=== PATIENT | female | born 1940 ===

== ENCOUNTER 2017-08-14 09:51 | Inpatient (IN) | payer MEDICARE, OTHER ==
[2017-08-14 09:51] VITALS: BMI 35.6
--- NOTE | 2017-08-14 10:25 | ED PDOC ---
Arrival/HPI - History of Present Illness Context: Home <Steve Segura - Last Filed: 08/14/17 15:15> - General Historian: Patient - History of Present Illness Time/Duration: < week Symptom Onset: Gradual Symptom Course: Improving Severity Level: Moderate Activities at Onset: Rest Context: Home <Jason Tan - Last Filed: 08/14/17 17:53> - General Chief Complaint: Dizziness/Lightheaded Time Seen by Provider: 08/14/17 09:58 - History of Present Illness Narrative History of Present Illness (Text): 08/14/17 10:21 This is a 77 yo female, originally from [place], with past medical hx of arthritis, DM, HLD, HTN, presenting with chief complaint of dizziness. Pt reports dizziness lasting x 2 days. Says it feels like room is spinning. It comes and goes. She says it has happened before, but it usually goes away. It has been constant since last night. It gets worse when she is sitting up, getting out of bed. Denies recent cold or URI. Denies fevers, chills, vomiting , diarrhea, chest pain, sob, palpitations. Denies LOC. Denies fall. PMH: Arthritis, DM, HLD, HTN PSH: breast biopsy, hysterectomy Allergies: PCN FH: Non contributory Home meds: tramadol, lisinopril, simvastatin, metformin Social hx: denies smoking, drinking, drug use. (Jason Tan) Past Medical History - Provider Review Nursing Documentation Reviewed: Yes - Infectious Disease Hx of Infectious Diseases: None - Tetanus Immunization Tetanus Immunization: Unknown - Reproductive Menopause: Yes - Cardiac Hx Cardiac Disorders: Yes Hx Hypertension: Yes Hx Pacemaker: No - Pulmonary Hx Respiratory Disorders: No - Neurological Hx Neurological Disorder: No Hx Paralysis: No - HEENT Hx HEENT Disorder: No - Renal Hx Renal Disorder: No - Endocrine/Metabolic Hx Diabetes Mellitus Type 2: Yes - Hematological/Oncological Hx Blood Disorders: No Hx Blood Transfusions: No - Integumentary Hx Dermatological Disorder: No - Musculoskeletal/Rheumatological Hx Musculoskeletal Disorders: Yes Hx Arthritis: Yes Hx Falls: No - Gastrointestinal Hx Gastroesophageal Reflux: Yes HX Swallowing Problems: Yes - Genitourinary/Gynecological Hx Genitourinary Disorders: Yes - Psychiatric Hx Psychophysiologic Disorder: No Hx Anxiety: No Hx Bipolar Disorder: No Hx Depression: No Hx Emotional Abuse: No Hx Hallucinations: No Hx Panic Disorder: No Hx Post Traumatic Stress Disorder: No Hx Psychosis: No Hx Physical Abuse: No Hx Schizophrenia: No Hx Sexual Abuse: No Hx Substance Use: No - Surgical History Other/Comment: R breast sx - Anesthesia Hx Anesthesia: Yes Hx Anesthesia Reactions: No Hx Malignant Hyperthermia: No - Suicidal Assessment Feels Threatened In Home Enviroment: No <Jason Tan - Last Filed: 08/14/17 17:53> Family/Social History - Physician Review Nursing Documentation Reviewed: Yes Family/Social History: Unknown Family HX Smoking Status: Former Smoker Hx Alcohol Use: No Hx Substance Use: No Hx Substance Use Treatment: No <Jason Tan - Last Filed: 08/14/17 17:53> Allergies/Home Meds <Steve Segura - Last Filed: 08/14/17 15:15> <Jason Tan - Last Filed: 08/14/17 17:53> Allergies/Adverse Reactions: Allergies Penicillins Adverse Reaction (Verified 03/26/17 09:20) SHORTNESS OF BREATH Home Medications: Home Meds Medication Instructions Recorded Confirmed Dexlansoprazole [Dexilant] 60 mg PO DAILY 01/28/14 08/14/17 Lisinopril/Hydrochlorothiazide 1 tab PO DAILY 01/28/14 08/14/17 [Lisinopril-Hctz 20-25 mg Tab] Tramadol HCl [Ultram] 50 mg PO Q8 PRN 06/29/15 08/14/17 Cholecalciferol [Vitamin D 1000 IU] 1 tab PO DAILY 03/26/17 08/14/17 Multivit-Minerals/Folic/Ginkgo 1 each PO QAM 03/26/17 08/14/17 [Cvs Daily Multiple Tablet] Simethicone [Mylicon Chew Tab] 80 mg PO ONCE PRN 03/26/17 08/14/17 Simvastatin 20 mg PO QAM 03/26/17 08/14/17 metFORMIN [glucOPHAGE] 500 mg PO QAM 03/26/17 08/14/17 Review of Systems - Review of Systems Constitutional: absent: Fatigue, Weight Change, Fevers Eyes: absent: Vision Changes, Photophobia ENT: absent: Hearing Changes, Tinnitus Respiratory: absent: SOB, Cough Cardiovascular: absent: Chest Pain, Palpitations Gastrointestinal: absent: Abdominal Pain, Stool Changes Genitourinary Female: absent: Dysuria, Frequency Musculoskeletal: absent: Arthralgias, Back Pain Skin: absent: Rash, Pruritis Neurological: Dizziness, Disequilibrium. absent: Speech Changes Endocrine: absent: Diaphoresis, Polyuria Hemo/Lymphatic: absent: Adenopathy, Easy Bleeding Psychiatric: absent: Anxiety, Depression <Jason Tan - Last Filed: 08/14/17 17:53> Physical Exam Temperature: Afebrile Blood Pressure: Normal Pulse: Tachycardic Respiratory Rate: Normal <Steve Segura - Last Filed: 08/14/17 15:15> Vital Signs Reviewed: Yes Finger Stick Blood Glucose: 106 - Systems Exam Head: Present: Atraumatic, Normocephalic Pupils: Present: PERRL Extroacular Muscles: Present: EOMI Conjunctiva: Present: Normal Mouth: Present: Moist Mucous Membranes Neck: Present: Normal Range of Motion. No: Meningeal Signs Respiratory/Chest: Present: Clear to Auscultation. No: Respiratory Distress Cardiovascular: Present: Regular Rate and Rhythm, Normal S1, S2 Abdomen: No: Tenderness, Distention, Peritoneal Signs Upper Extremity: Present: Normal Inspection. No: Cyanosis, Edema Lower Extremity: Present: Normal Inspection. No: Edema Neurological: Present: CN II-XII Intact, Speech Normal, Motor Func Grossly Intact Skin: Present: Warm, Dry Psychiatric: Present: Alert, Oriented x 3, Normal Insight, Normal Concentration <Jason Tan - Last Filed: 08/14/17 17:53> Vital Signs Temp Pulse Resp BP Pulse Ox 08/14/17 15:19 89 18 137/71 100 08/14/17 14:16 91 H 119/78 97 08/14/17 12:04 95 H 18 120/75 99 08/14/17 10:18 98.0 F 98 H 17 116/73 99 Medical Decision Making <Steve Segura - Last Filed: 08/14/17 15:15> <Jason Tan - Last Filed: 08/14/17 17:53> ED Course and Treatment: A 77 year old female with dizziness. In agreement with resident note, which includes further HPI details. Patient was seen and evaluated with resident, came up with plan and treatment together. 08/14/17 10:52 Seen and examined with the resident. Our history and physical exam reveals an elderly woman with typical vertigo for the last several days. She has a normal neurological exam. No nausea or vomiting. No chest pain or palpitations. ( Colton,Steve) - Lab Interpretations Lab Results: 08/14/17 10:50 08/14/17 10:50 Lab Results 08/14/17 12:45: Urine Color Yellow, Urine Appearance Sl cloudy, Urine pH 6.5, Ur Specific [place] 1.020, Urine Protein Trace H, Urine Glucose (UA) Negative, Urine Ketones Negative, Urine Blood Trace-intact H, Urine Nitrate Negative, Urine Bilirubin Negative, Urine Urobilinogen 0.2, Ur Leukocyte Esterase Moderate H, Urine RBC Negative, Urine WBC 25 - 30, Ur Epithelial Cells 3 - 4 08/14/17 10:50: Sodium 140, Potassium 3.7, Chloride 104, Carbon Dioxide 27, Anion Gap 13, BUN 17, Creatinine 0.6 L, Est GFR ( Amer) > 60, Est GFR ( Non-Af Amer) > 60, Random Glucose 99, Calcium 10.4, Total Bilirubin 0.6, AST 25 , ALT 30, Alkaline Phosphatase 72, Troponin I < 0.01, Total Protein 8.1, Albumin 4.4, Globulin 3.7, Albumin/Globulin Ratio 1.2 08/14/17 10:50: WBC 9.8, RBC 5.17, Hgb 15.2, Hct 46.1, MCV 89.2, MCH 29.4, MCHC 33.0, RDW 14.3, Plt Count 270, MPV 10.7, Gran % 54.7, Lymph % (Auto) 32.7, [place] % (Auto) 11.8 H, Eos % (Auto) 0.4 L, Baso % (Auto) 0.4, Gran # 5.38, Lymph # 3.2 , [place] # 1.2 H, Eos # 0.0, Baso # 0.04 - RAD Interpretation Radiology Orders: 08/14/17 10:17 HEAD W/O CONTRAST [CT] Stat 08/14/17 11:58 BRAIN W & WO CONTRAST [MRI] Stat - Medication Orders Current Medication Orders: Atorvastatin Calcium (Lipitor) 10 mg PO DIN MARINA Cholecalciferol (Vitamin D) 1,000 iu PO DAILY MARINA Ciprofloxacin (Cipro) 500 mg PO DAILY MARINA PRN Reason: Protocol Stop: 08/15/17 17:19 Famotidine (Pepcid) 20 mg PO BID MARINA Heparin Sodium (Porcine) (Heparin) 5,000 units SC Q8 MARINA PRN Reason: Protocol Sodium Chloride (Sodium Chloride 0.9%) 1,000 mls @ 100 mls/hr IV .Q10H MARINA Last Admin: 08/14/17 11:07 Dose: 100 mls/hr eMAR Start Stop Document 08/14/17 11:07 SF (Rec: 08/14/17 11:07 SF [id number]) Intravenous Solution Start Date 08/14/17 Start Time 11:07 End Date 08/14/17 End time 23:07 Total Infusion Time 720 Lisinopril (Zestril) 40 mg PO DAILY MARINA Discontinued Medications Ciprofloxacin (Cipro) 500 mg PO ONCE STA PRN Reason: Protocol Stop: 08/14/17 13:53 Last Admin: 08/14/17 14:13 Dose: 500 mg Meclizine HCl (Antivert) 12.5 mg PO STAT STA Stop: 08/14/17 10:41 Last Admin: 08/14/17 11:07 Dose: 12.5 mg - PA / BARREL RIFLER HOOK / Resident Statement /DO has reviewed & agrees with the documentation as recorded. MD/ has examined the patient and agrees with the treatment plan. - Scribe Statement The provider has reviewed the documentation as recorded by the Scribe <Steve Segura - Last Filed: 08/14/17 15:15> <Jason Tan - Last Filed: 08/14/17 17:53> - Scribe Statement Paige Altamirano Provider Scribe Attestation: All medical record entries made by the Scribe were at my direction and personally dictated by me. I have reviewed the chart and agree that the record accurately reflects my personal performance of the history, physical exam, medical decision making, and the department course for this patient. I have also personally directed, reviewed, and agree with the discharge instructions and disposition. (Steve Segura) Disposition/Present on Arrival - Present on Arrival Any Indicators Present on Arrival: No History of DVT/PE: No History of Uncontrolled Diabetes: No Urinary Catheter: No History of Decub. Ulcer: No - Disposition Have Diagnosis and Disposition been Completed?: Yes Disposition Time: 14:06 Patient Plan: Admission <Steve Segura - Last Filed: 08/14/17 15:15> - Present on Arrival Any Indicators Present on Arrival: No History of DVT/PE: No History of Uncontrolled Diabetes: No Urinary Catheter: No History of Decub. Ulcer: No History Surgical Site Infection Following: None - Disposition Have Diagnosis and Disposition been Completed?: Yes Patient Plan: Admission <Jason Tan - Last Filed: 08/14/17 17:53> - Disposition Diagnosis: Meningioma, Dizziness, Urinary tract infection Disposition: HOSPITALIZED Patient Problems: Current Active Problems Problem Status Onset Dizziness Acute Meningioma Acute Urinary tract infection Acute Condition: STABLE
[2017-08-14] MEDS: Sodium Chloride 0.9% 1,000 ML IV SCH (11:07)
[2017-08-14 11:08] LABS: BASO # 0.04 K/mm3 (0.0-2.0); BASO % 0.4 % (0.0-3.0); EOS % 0.4 % (1.5-5.0); GRAN # 5.38 (1.4-6.5); GRAN % 54.7 % (50.0-68.0); HEMATOCRIT 46.1 % (36.0-48.0); LYMPH # 3.2 (1.2-3.4); LYMPH % 32.7 % (22.0-35.0); MEAN CELL VOLUME 89.2 fl (80.0-105.0); MEAN CORPUSCULAR HEMOGLOBIN 29.4 pg (25.0-35.0); MEAN PLATELET VOLUME 10.7 fl (7.0-11.0); MONO # 1.2 (0.1-0.6); MONO % 11.8 % (1.0-6.0); RED CELL DISTRIBUTION WIDTH 14.3 % (11.5-14.5); WHITE BLOOD COUNT 9.8 10^3/ul (4.5-11.0)
[2017-08-14 11:12] LABS: ALB/GLOB RATIO 1.2 (1.1-1.8); ALKALINE PHOSPHATASE 72 U/L (38-126); ALT/SGPT 30 U/L (7-56); AST/SGOT 25 U/L (14-36); BILIRUBIN,TOTAL 0.6 mg/dL (0.2-1.3); BLOOD UREA NITROGEN 17 mg/dL (7-21); CALCIUM 10.4 mg/dL (8.4-10.5); CARBON DIOXIDE 27 mmol/L (21-33); CHLORIDE 104 mmol/L (98-107); GFR AFRICAN-AMERICAN > 60; GLUCOSE,RANDOM 99 mg/dL (70-110); POTASSIUM 3.7 mmol/L (3.6-5.0); SODIUM 140 mmol/L (132-148); TOTAL PROTEIN 8.1 g/dL (5.8-8.3)
[2017-08-14 11:23] LABS: TROPONIN I < 0.01 ng/mL
--- NOTE | 2017-08-14 11:34 | CT ---
PROCEDURE: CT HEAD WITHOUT CONTRAST. HISTORY: dizziness/near syncope COMPARISON: None available. TECHNIQUE: Axial computed tomography images were obtained through the head/brain without intravenous contrast. Radiation dose: Total exam DLP = 726.57 mGy-cm. This CT exam was performed using one or more of the following dose reduction techniques: Automated exposure control, adjustment of the mA and/or kV according to patient size, and/or use of iterative reconstruction technique. FINDINGS: HEMORRHAGE: No intracranial hemorrhage. BRAIN: There is ill-defined masslike increased attenuation in the right frontal lobe, along the anterior border of the sphenoid wing. There is no surrounding vasogenic edema or mass effect. Further evaluation with pre and post gadolinium enhanced magnetic resonance imaging is advised. No other intracranial mass is identified. There is no evidence of acute infarct. There are scattered punctate cortical calcifications likely postinfectious/postinflammatory in origin. There is minimal diffuse age-appropriate cerebral atrophy. VENTRICLES: Unremarkable. No hydrocephalus. CALVARIUM: Unremarkable. PARANASAL SINUSES: Unremarkable as visualized. No significant inflammatory changes. MASTOID AIR CELLS: Unremarkable as visualized. No inflammatory changes. OTHER FINDINGS: None. IMPRESSION: Questionable right frontal lobe mass versus artifact. Recommend evaluation with pre and post gadolinium enhanced magnetic resonance imaging. No intracranial hemorrhage or evidence of acute infarct. Is for
[2017-08-14] MEDS ORDERED: Gadodiamide 287 MG/ML VIAL (20ML) IV ONE (13:05)
[2017-08-14 13:07] LABS: PH,URINE 6.5 (4.7-8.0); URINE BILIRUBIN NEGATIVE (NEGATIVE); URINE BLOOD TRACE-INTACT (NEGATIVE); URINE GLUCOSE (UA) NEGATIVE (NEGATIVE); URINE KETONE NEGATIVE (NEGATIVE); URINE LEUKOCYTE ESTERASE MODERATE Leu/uL (NEGATIVE); URINE PROTEIN TRACE mg/dL (<30 mg/dL); URINE UROBILINOGEN 0.2 E.U./dL (<1 E.U./dL)
[2017-08-14 13:12] LABS: URINE APPEARANCE SL CLOUDY (CLEAR); URINE COLOR YELLOW (YELLOW)
[2017-08-14 13:23] LABS: URINE RBC NEGATIVE /hpf (0-2); URINE WBC 25 - 30 /hpf (0-6)
--- NOTE | 2017-08-14 14:01 | MRI ---
PROCEDURE: MRI BRAIN WITH AND WITHOUT CONTRAST HISTORY: mass COMPARISON: CT of the head performed earlier today TECHNIQUE: Multiplanar, multisequence MR images of the brain were obtained with and without intravenous contrast enhancement. 20 cc of Omniscan FINDINGS: HEMORRHAGE: None DWI: No evidence of an acute or early subacute infarction. BRAIN PARENCHYMA: There is an enhancing mass in the right frontal region that most likely represents a meningioma. This measures 12 mm wide by 13 mm AP x 14 mm in height. This shows intense enhancement. There is no significant mass effect or edema in the adjacent brain. ENHANCEMENT: As above VENTRICLES: Unremarkable. No hydrocephalus. CRANIUM: Unremarkable. ORBITS: Grossly unremarkable. PARANASAL SINUSES/MASTOIDS: Clear VASCULAR SYSTEM: Skull base flow voids intact. OTHER FINDINGS: None . IMPRESSION: There is an enhancing mass in the right frontal region that most likely represents a meningioma. This measures 12 mm wide by 13 mm AP x 14 mm in height. This shows intense enhancement.
--- NOTE | 2017-08-14 17:01 | CP.PCM.HP ---
History of Present Illness - History of Present Illness History of Present Illness: CC: Dizziness HPI: Ms. Villanueva is a 77 year old female with a pmh of arthritis, DM, HLD, HTN, arthritis, presenting with 2 day complaint of feeling dizzy. She states that this came on all of a sudden and happens predominantly when she turns her head from side to side. She states that this happened one time previously one year ago however it went away on its own without any intervention. She states now this dizziness comes in 5-6 minute intervals on and off for the last 2 days. She states that she feels as if the room is spinning. Pt states that she is additionally having numbness and tingling in her bilateral 5th fingers. She denies any weakness or loss of mobility in bilateral hands. She denies any changes in vision, and problems with balance, tinnitus, and changes in hearing. She additionally denies; any fevers or chills, nausea or vomiting, chest pain, SOB, palpitations. Patient denies recent syncope, seizure activity or changes in vision or hearing. PMH: Arthritis, DM, HLD, HTN PSH: Right breast mastectomy for benign lesion, Hysterectomy, bilateral salpingectomy Fam Hx: Sister Breast Ca Soc: Smoker: socially, Denies alcohol or recreational drugs Meds: (Pharmacy [facility]) Simvastatin 20 mg 1x daily Prednisone 5mg 1x daily Lisinopril 40mg 1x daily Zantac 150mg 1x daily Present on Admission - Present on Admission Any Indicators Present on Admission: No Review of Systems - Constitutional Constitutional: absent: Chills, Fever - EENT Eyes: absent: Blind Spots, Blurred Vision, Diplopia, Tunnel Vision Ears: absent: Decreased Hearing, Abnormal Hearing Nose/Mouth/Throat: absent: Epistaxis, Nasal Congestion, Nasal Discharge - Breasts Breasts: Pain (right sided ) - Cardiovascular Cardiovascular: absent: Chest Pain, Chest Pain at Rest, Chest Pain with Activity , Dyspnea, Leg Edema - Respiratory Respiratory: absent: Cough, Dyspnea, Hemoptysis - Gastrointestinal Gastrointestinal: absent: Change in Bowel Habits, Constipation, Diarrhea - Genitourinary Genitourinary: absent: Change in Urinary Stream, Dysuria, Hematuria - Musculoskeletal Musculoskeletal: Arthralgias, Limited Range of Motion (neck ), Numbness (left fifth digit bilateral ). absent: Abnormal Gait - Integumentary Integumentary: absent: Acne, Rash - Neurological Neurological: Dizziness, Weakness. absent: Abnormal Gait, Confusion, Focal Weakness, Lack of Coordination, Tremor - Psychiatric Psychiatric: absent: Anxiety, Depression Past Patient History - Infectious Disease Hx of Infectious Diseases: None - Tetanus Immunizations Tetanus Immunization: Unknown - Past Medical History & Family History Past Medical History?: Yes - Past Social History Smoking Status: Former Smoker Alcohol: None Drugs: Denies - CARDIAC Hx Cardiac Disorders: Yes Hx Hypertension: Yes Hx Pacemaker: No - PULMONARY Hx Respiratory Disorders: No - NEUROLOGICAL Hx Neurological Disorder: No Hx Paralysis: No - HEENT Hx HEENT Problems: No - RENAL Hx Chronic Kidney Disease: No - ENDOCRINE/METABOLIC Hx Diabetes Mellitus Type 2: Yes - HEMATOLOGICAL/ONCOLOGICAL Hx Blood Disorders: No Hx Blood Transfusions: No - INTEGUMENTARY Hx Dermatological Problems: No - MUSCULOSKELETAL/RHEUMATOLOGICAL Hx Musculoskeletal Disorders: Yes Hx Arthritis: Yes Hx Falls: No - GASTROINTESTINAL Hx Gastroesophageal Reflux: Yes HX Swallowing Problems: Yes - GENITOURINARY/GYNECOLOGICAL Hx Genitourinary Disorders: Yes - PSYCHIATRIC Hx Psychophysiologic Disorder: No Hx Anxiety: No Hx Bipolar Disorder: No Hx Depression: No Hx Emotional Abuse: No Hx Hallucinations: No Hx Panic Symptoms: No Hx Post Traumatic Stress Disorder: No Hx Psychosis: No Hx Physical Abuse: No Hx Schizophrenia: No Hx Sexual Abuse: No Hx Substance Use: No - SURGICAL HISTORY Other/Comment: R breast sx - ANESTHESIA Hx Anesthesia: Yes Hx Anesthesia Reactions: No Hx Malignant Hyperthermia: No Meds Allergies/Adverse Reactions: Allergies Allergy/AdvReac Type Severity Reaction Status Date / Time Penicillins AdvReac SHORTNESS Verified 03/26/17 09:20 OF BREATH Physical Exam - Constitutional Appears: Non-toxic, No Acute Distress - Head Exam Head Exam: ATRAUMATIC, NORMAL INSPECTION, NORMOCEPHALIC - Eye Exam Eye Exam: EOMI, PERRL - ENT Exam ENT Exam: Mucous Membranes Moist, TM's Normal Bilaterally Additional comments: Internal Ear exam showing cerumen bilateral, no erythema, drainage or perforation noted Poor dentation noted - Neck Exam Neck exam: Negative for: Full Rom, Tenderness Additional comments: limited Fazal-Hallpike secondary to body bhabitus and symptomolgy, no nystagmus noted - Respiratory Exam Respiratory Exam: Clear to Auscultation Bilateral, NORMAL BREATHING PATTERN. absent: Rales, Rhonchi, Wheezes - Cardiovascular Exam Cardiovascular Exam: REGULAR RHYTHM, +S1, +S2 - GI/Abdominal Exam GI & Abdominal Exam: Hypoactive Bowel Sounds, Soft. absent: Firm, Guarding, Tenderness - Extremities Exam Extremities exam: Negative for: calf tenderness, pedal edema, tenderness - Neurological Exam Neurological exam: Alert, CN II-XII Intact, Normal Gait, Oriented x3 Additional comments: motor grossly intact Sensory of left and right lateral fifth digit with minimal sensation - Psychiatric Exam Psychiatric exam: Normal Affect, Normal Mood - Skin Skin Exam: Dry, Intact, Warm Results - Vital Signs Recent Vital Signs: Last Vital Signs Temp 98.0 F 08/14/17 10:18 Pulse 89 08/14/17 15:19 Resp 18 08/14/17 15:19 BP 137/71 08/14/17 15:19 Pulse Ox 100 08/14/17 15:19 - Labs Result Diagrams: 08/14/17 10:50 08/14/17 10:50 Assessment & Plan (1) Dizziness Status: Acute (2) Meningioma Status: Acute (3) Urinary tract infection Status: Acute - Assessment and Plan (Free Text) Assessment: Patient is a 77 yo female, originally from [place], with past medical hx of arthritis, DM, HLD, HTN who presents with few day history of dizziness and chronic left and right fifth digit numbness. During evaluation in ED patient found to have UTI and mengioma measuring [id number] enhancing mass in the Right Frontal Region suspicious for mengioma. Patient admitted for further work up and evaluation. Plan: 1. Meningioma - Brain MRI ordered in the ED Revealing [id number] enhancing mass in the Right Frontal Region - Neurology consulted, appreciate recs - Neurosurgery consulted, appreciate recs - Patient currently stable without focal deficits 2. UTI - Patient denies dysuria, hematuria, afebrile - UA reveals Leukocyte esterase - UA culture, f/u - Ciprofloxacin 500mg Daily x 3 days 3. Dizziness - Vitals Reviewed - orthostatics - CBC and CMP reviewed and within limits - Meclizine 12.5 mg given in the ED - Fazal-halpike negative in ED 4. Dyslipidemia - Lipitor 10mg Daily 5. HTN - lisinopril 40mg Daily - monitor 6. Hx of DM: - Patient no longer taking metformin - achs GI and DVT PPx: Famotidine 20mg BID Heparin SC - Date & Time Date: 08/14/17 Time: 17:07
[2017-08-14] MEDS ORDERED: Pneumococcal 23-Valent Vaccine IM ONE (19:49)
[2017-08-14] MEDS ORDERED: Influenza Vaccine 60 mcg/0.5 mL SYR (4YR UP) IM ONE (19:49)
--- NOTE | 2017-08-14 19:51 | CARD ---
APPROVED REPORT EKG Measurement Heart [id number] SD [id number] <Conclusion> Sinus rhythm with 1st degree AV block Left axis deviation Inferior infarct, age undetermined Abnormal ECG
--- NOTE | 2017-08-14 20:39 | CP.PCM.CON ---
<Azeb Winchester - Last Filed: 08/14/17 22:53> History of Present Illness - History of Present Illness History of Present Illness: PGY-2 neurology consult note for Dr. Diaz's service 77 year old female with a pmh of arthritis, Diabetes, hyperlipidemia, HTN, arthritis, presenting with 2 day complaint of feeling dizzy. She states that it is sudden and occurs when she turns her head from side to side. She reports 1 prior episode last year that resolved spontaneously. She describes it as the sensation of the room spinning. Dizziness has been on and off for the last 2 days. She denies any focal weakness, changes in vision, and problems with balance, tinnitus, and changes in hearing. During the work up for vertigo patient had head CT and brain MRI which showed meningioma in the right frontal region. Patient denies any headaches. PMH: Arthritis, DM, HLD, HTN PSH: Right breast mastectomy for benign lesion, Hysterectomy, bilateral salpingectomy Social history: Smokes socially, Denies alcohol or recreational drugs Meds: Simvastatin, Prednisone, Lisinopril, Zantac Review of Systems - Review of Systems All systems: reviewed and no additional remarkable complaints except (as stated in HPI) Past Patient History - Infectious Disease Hx of Infectious Diseases: None - Tetanus Immunizations Tetanus Immunization: Unknown - Past Medical History & Family History Past Medical History?: Yes - Past Social History Smoking Status: Former Smoker - CARDIAC Hx Cardiac Disorders: Yes Hx Hypercholesterolemia: Yes Hx Hypertension: Yes Hx Pacemaker: No - PULMONARY Hx Respiratory Disorders: No - NEUROLOGICAL Hx Neurological Disorder: No - HEENT Hx HEENT Problems: No - RENAL Hx Chronic Kidney Disease: No - ENDOCRINE/METABOLIC Hx Diabetes Mellitus Type 2: Yes - HEMATOLOGICAL/ONCOLOGICAL Hx Blood Disorders: No 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) Hx Chemotherapy: No - INTEGUMENTARY Hx Dermatological Problems: No - MUSCULOSKELETAL/RHEUMATOLOGICAL Hx Falls: No - GASTROINTESTINAL Hx Gastrointestinal Disorders: Yes (chronic constipation takes miralax daily) Hx Diverticulitis: Yes Hx Gastroesophageal Reflux: Yes HX Swallowing Problems: Yes Other/Comment: gastritis, pt uncertain about barretts esophagus, obese - GENITOURINARY/GYNECOLOGICAL Hx Genitourinary Disorders: Yes Other/Comment: multiple vaginal infections - PSYCHIATRIC Hx Substance Use: No - SURGICAL HISTORY Hx Hysterectomy: Yes (total due to uterine ca no chemo) Other/Comment: R breast sx benign - ANESTHESIA Hx Anesthesia: Yes Hx Anesthesia Reactions: No Hx Malignant Hyperthermia: No Meds Allergies/Adverse Reactions: Allergies Allergy/AdvReac Type Severity Reaction Status Date / Time Penicillins AdvReac SHORTNESS Verified 03/26/17 09:20 OF BREATH - Medications Medications: Current Medications Atorvastatin Calcium (Lipitor) 10 mg PO DIN [facility] Last Admin: 08/14/17 17:51 Dose: 10 mg Cholecalciferol (Vitamin D) 1,000 iu PO DAILY [facility] Ciprofloxacin (Cipro) 500 mg PO DAILY [facility] PRN Reason: Protocol Stop: 08/15/17 17:19 Famotidine (Pepcid) 20 mg PO BID [facility] Last Admin: 08/14/17 17:51 Dose: 20 mg Heparin Sodium (Porcine) (Heparin) 5,000 units SC Q8 [facility] PRN Reason: Protocol Sodium Chloride (Sodium Chloride 0.9%) 1,000 mls @ 100 mls/hr IV .Q10H [facility] Last Admin: 08/14/17 11:07 Dose: 100 mls/hr Lisinopril (Zestril) 40 mg PO DAILY [facility] Physical Exam - Constitutional Appears: Well, No Acute Distress - Head Exam Head Exam: ATRAUMATIC, NORMAL INSPECTION, NORMOCEPHALIC - Eye Exam Eye Exam: EOMI, Normal appearance - ENT Exam ENT Exam: Mucous Membranes Moist - Respiratory Exam Respiratory Exam: NORMAL BREATHING PATTERN. absent: Prolonged Expiratory Phase , Respiratory Distress - Cardiovascular Exam Cardiovascular Exam: REGULAR RHYTHM - Neurological Exam Neurological exam: Alert, CN II-XII Intact, Oriented x3, Reflexes Normal - Skin Skin Exam: Dry, Intact, Normal Color, Warm Results - Vital Signs Recent Vital Signs: Last Vital Signs Temp 98 F 08/14/17 19:40 Pulse 91 H 08/14/17 19:40 Resp 18 08/14/17 19:40 BP 119/78 08/14/17 19:40 Pulse Ox 96 08/14/17 16:00 - Labs Result Diagrams: 08/14/17 10:50 08/14/17 10:50 Assessment & Plan - Assessment and Plan (Free Text) Assessment: 77 year old female with a pmh of arthritis, DM, HLD, HTN, arthritis, presenting with dizziness secondary to positional vertigo intermittently worsening with incidental meningioma. 1. positional vertigo 2. incidental meningioma of right frontal lobe 3. diabetes 4. hyperlipidemia - CT head and MRI brain showed meningioma in the right frontal region. - orthostatic vitals - outpatient vestibular therapy - salt restriction and diet - meclize PRN at onset of acute dizziness - inceidental meningioma, patient currently asymtompatic consider moniotring - consider neurosurgery evaluation thank you for the consult, please reconsult if needed case reviewed and discussed with attending, Dr. Diaz <Mannie Diaz - Last Filed: 08/15/17 10:38> Meds - Medications Medications: Current Medications Atorvastatin Calcium (Lipitor) 10 mg PO DIN [facility] Last Admin: 08/14/17 17:51 Dose: 10 mg Cholecalciferol (Vitamin D) 1,000 iu PO DAILY [facility] Last Admin: 08/15/17 08:59 Dose: 1,000 iu Famotidine (Pepcid) 20 mg PO BID [facility] Last Admin: 08/15/17 08:59 Dose: 20 mg Heparin Sodium (Porcine) (Heparin) 5,000 units SC Q8 [facility] PRN Reason: Protocol Last Admin: 08/15/17 06:14 Dose: 5,000 units Sodium Chloride (Sodium Chloride 0.9%) 1,000 mls @ 100 mls/hr IV .Q10H [facility] Last Admin: 08/15/17 09:27 Dose: 100 mls/hr Aztreonam (Azactam 1 Gm) 100 mls @ 100 mls/hr IVPB Q8 [facility] PRN Reason: Protocol Stop: 08/21/17 23:16 Last Admin: 08/15/17 06:14 Dose: 100 mls/hr Lisinopril (Zestril) 40 mg PO DAILY [facility] Last Admin: 08/15/17 08:59 Dose: 40 mg Meclizine HCl (Antivert) 25 mg PO BID PRN PRN Reason: Dizziness Results - Vital Signs Recent Vital Signs: Last Vital Signs Temp 98 F 08/15/17 07:00 Pulse 77 08/15/17 07:00 Resp 20 08/15/17 07:00 BP 130/63 08/15/17 07:00 Pulse Ox 99 08/15/17 07:00 - Labs Result Diagrams: 08/15/17 06:30 08/15/17 06:50 Labs: Laboratory Results - last 24 hr 08/14/17 08/14/17 08/15/17 16:55 21:11 06:30 WBC 6.9 D RBC 5.01 Hgb 14.5 Hct 44.7 MCV 89.2 MCH 28.9 MCHC 32.4 RDW 14.7 H Plt Count 286 MPV 10.9 Gran % 45.7 L Lymph % (Auto) 42.4 H [place] % (Auto) 9.7 H Eos % (Auto) 1.6 Baso % (Auto) 0.6 Gran # 3.14 Lymph # 2.9 [place] # 0.7 H Eos # 0.1 Baso # 0.04 Sodium Potassium Carbon Dioxide BUN POC Glucose (mg/dL) 82 102 Random Glucose Total Bilirubin Total Protein Globulin Albumin/Globulin Ratio 08/15/17 08/15/17 06:50 07:24 WBC RBC Hgb Hct MCV MCH MCHC RDW Plt Count MPV Gran % Lymph % (Auto) [place] % (Auto) Eos % (Auto) Baso % (Auto) Gran # Lymph # [place] # Eos # Baso # Sodium 140 Potassium 4.5 Carbon Dioxide 21 BUN 13 POC Glucose (mg/dL) 111 H Random Glucose 105 Total Bilirubin 0.7 Total Protein 7.1 Globulin 2.9 Albumin/Globulin Ratio 1.4 Attending/Attestation - Attestation I have personally seen and examined this patient.: Yes I have fully participated in the care of the patient.: Yes I have reviewed all pertinent clinical information: Yes
[2017-08-14] MEDS: Aztreonam 1 Gm in NS 100mL 100 ML IVPB SCH (23:31)
[2017-08-15 03:58] VITALS: RESP 20
[2017-08-15] MEDS: Aztreonam 1 Gm in NS 100mL 100 ML IVPB SCH ×2 (06:14→14:18)
[2017-08-15 07:03] LABS: BASO # 0.04 K/mm3 (0.0-2.0); BASO % 0.6 % (0.0-3.0); EOS # 0.1 (0.0-0.7); EOS % 1.6 % (1.5-5.0); GRAN # 3.14 (1.4-6.5); GRAN % 45.7 % (50.0-68.0); HEMATOCRIT 44.7 % (36.0-48.0); LYMPH # 2.9 (1.2-3.4); LYMPH % 42.4 % (22.0-35.0); MEAN CELL VOLUME 89.2 fl (80.0-105.0); MEAN CORPUSCULAR HEMOGLOBIN 28.9 pg (25.0-35.0); MEAN CORPUSCULAR HGB CONC 32.4 g/dl (31.0-37.0); MEAN PLATELET VOLUME 10.9 fl (7.0-11.0); MONO # 0.7 (0.1-0.6); MONO % 9.7 % (1.0-6.0); RED CELL DISTRIBUTION WIDTH 14.7 % (11.5-14.5); WHITE BLOOD COUNT 6.9 10^3/ul (4.5-11.0)
[2017-08-15 08:51] LABS: ALB/GLOB RATIO 1.4 (1.1-1.8); BILIRUBIN,TOTAL 0.7 mg/dL (0.2-1.3); BLOOD UREA NITROGEN 13 mg/dL (7-21); CARBON DIOXIDE 21 mmol/L (21-33); GLUCOSE,RANDOM 105 mg/dL (70-110); POTASSIUM 4.5 mmol/L (3.6-5.0); SODIUM 140 mmol/L (132-148); TOTAL PROTEIN 7.1 g/dL (5.8-8.3)
[2017-08-15 09:03] VITALS: BP 130/63; PULSE 77; TEMP 98; O2SAT 99
[2017-08-15] MEDS: Sodium Chloride 0.9% 1,000 ML IV SCH (09:27)
[2017-08-15 11:56] LABS: GFR AFRICAN-AMERICAN > 60
[2017-08-15 11:57] LABS: ALKALINE PHOSPHATASE 69 U/L (38-126); ALT/SGPT 30 U/L (7-56); AST/SGOT 23 U/L (14-36); CHLORIDE 107 mmol/L (98-107)
--- NOTE | 2017-08-15 12:49 | CP.PCM.CON ---
History of Present Illness - History of Present Illness History of Present Illness: 77 year old female with PMH of coronary artery disease, hypertension, hyperlipidemia, arthritis, history of diverticulitis in the past, gastritis, history of right breast mastectomy, S/P hysterectomy and bilateral salpingectomy was brought in to [facility] because of dizziness for the past 2-3 days, which was intermittent and sudden in onset. She is also complaining of 2-3 days of burning sensation on urination and she states that she has had multiple episodes of UTI in the past and she was last treated with antibiotics in April 2017. Infectious diseases consult is requested to evaluate for UTI. Imaging of the head reveals meningioma. She denies headache, no blurring of vision, no nausea or vomiting, no chest pain, no SOB, no cough or colds, no abdominal pain, no dysphagia, no diarrhea. She has not traveled outside of [place] in the past 3 months. Review of Systems - Review of Systems All systems: reviewed and no additional remarkable complaints except (as per HPI ) Past Patient History - Infectious Disease Hx of Infectious Diseases: None - Tetanus Immunizations Tetanus Immunization: Unknown - Past Medical History & Family History Past Medical History?: Yes - Past Social History Smoking Status: Former Smoker - CARDIAC Hx Cardiac Disorders: Yes Hx Hypercholesterolemia: Yes Hx Hypertension: Yes Hx Pacemaker: No - PULMONARY Hx Respiratory Disorders: No - NEUROLOGICAL Hx Neurological Disorder: No - HEENT Hx HEENT Problems: No - RENAL Hx Chronic Kidney Disease: No - ENDOCRINE/METABOLIC Hx Diabetes Mellitus Type 2: Yes - HEMATOLOGICAL/ONCOLOGICAL Hx Blood Disorders: No 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) Hx Chemotherapy: No - INTEGUMENTARY Hx Dermatological Problems: No - MUSCULOSKELETAL/RHEUMATOLOGICAL Hx Falls: No - GASTROINTESTINAL Hx Gastrointestinal Disorders: Yes (chronic constipation takes miralax daily) Hx Diverticulitis: Yes Hx Gastroesophageal Reflux: Yes HX Swallowing Problems: Yes Other/Comment: gastritis, pt uncertain about barretts esophagus, obese - GENITOURINARY/GYNECOLOGICAL Hx Genitourinary Disorders: Yes Other/Comment: multiple vaginal infections - PSYCHIATRIC Hx Substance Use: No - SURGICAL HISTORY Hx Hysterectomy: Yes (total due to uterine ca no chemo) Other/Comment: R breast sx benign - ANESTHESIA Hx Anesthesia: Yes Hx Anesthesia Reactions: No Hx Malignant Hyperthermia: No Meds Allergies/Adverse Reactions: Allergies Allergy/AdvReac Type Severity Reaction Status Date / Time Penicillins AdvReac SHORTNESS Verified 03/26/17 09:20 OF BREATH - Medications Medications: Current Medications Atorvastatin Calcium (Lipitor) 10 mg PO DIN [facility] Last Admin: 08/14/17 17:51 Dose: 10 mg Cholecalciferol (Vitamin D) 1,000 iu PO DAILY [facility] Famotidine (Pepcid) 20 mg PO BID [facility] Last Admin: 08/14/17 17:51 Dose: 20 mg Heparin Sodium (Porcine) (Heparin) 5,000 units SC Q8 [facility] PRN Reason: Protocol Last Admin: 08/14/17 21:42 Dose: 5,000 units Sodium Chloride (Sodium Chloride 0.9%) 1,000 mls @ 100 mls/hr IV .Q10H [facility] Last Admin: 08/14/17 11:07 Dose: 100 mls/hr Aztreonam (Azactam 1 Gm) 100 mls @ 100 mls/hr IVPB Q8 [facility] PRN Reason: Protocol Stop: 08/21/17 23:16 Lisinopril (Zestril) 40 mg PO DAILY [facility] Meclizine HCl (Antivert) 25 mg PO BID PRN PRN Reason: Dizziness Physical Exam - Constitutional Appears: Non-toxic - Head Exam Head Exam: NORMAL INSPECTION - ENT Exam ENT Exam: Mucous Membranes Moist - Neck Exam Neck exam: Negative for: Lymphadenopathy, Meningismus - Respiratory Exam Respiratory Exam: Decreased Breath Sounds - Cardiovascular Exam Cardiovascular Exam: +S1, +S2 - GI/Abdominal Exam GI & Abdominal Exam: Soft. absent: Tenderness Results - Vital Signs Recent Vital Signs: Last Vital Signs Temp 98 F 08/14/17 19:40 Pulse 91 H 08/14/17 19:40 Resp 18 08/14/17 19:40 BP 119/78 08/14/17 19:40 Pulse Ox 96 08/14/17 16:00 - Labs Result Diagrams: 08/15/17 06:30 08/15/17 06:50 Assessment & Plan - Assessment and Plan (Free Text) Plan: Assessment R/O UTI in this patient with history of UTI's history of acute sigmoid diverticulitis with associated diverticular abscess growing ESBL producing E. coli coronary artery disease hypertension hyperlipidemia arthritis history of diverticulitis in the past gastritis history of right breast mastectomy S/P hysterectomy and bilateral salpingectomy Plan started patient on Azactam pending blood and urine cx follow up Neurology evaluation and recommendations will monitor clinically
--- NOTE | 2017-08-15 14:06 | CP.PCM.PN ---
Subjective - Date & Time of Evaluation Date of Evaluation: 08/15/17 Time of Evaluation: 14:04 - Subjective Subjective: MRI demonstrates 1.2 cm diameter mass lat sphenoid wing with no mass effect this is consistant with meningioma It is incidental finding, and not related to symptoms and complaints which caused admission Would not consider operating on this at this admission suggest she follows as outpatient for this problem It is not an acute issue Objective - Vital Signs/Intake and Output Vital Signs (last 24 hours): Temp Pulse Resp BP Pulse Ox 98 F 77 20 130/63 99 08/15/17 07:00 08/15/17 07:00 08/15/17 07:00 08/15/17 07:00 08/15/17 07:00 Intake and Output: 08/15/17 08/15/17 06:59 18:59 Intake Total 240 Balance 240 - Medications Medications: Current Medications Atorvastatin Calcium (Lipitor) 10 mg PO DIN [facility] Last Admin: 08/14/17 17:51 Dose: 10 mg Cholecalciferol (Vitamin D) 1,000 iu PO DAILY [facility] Last Admin: 08/15/17 08:59 Dose: 1,000 iu Famotidine (Pepcid) 20 mg PO BID [facility] Last Admin: 08/15/17 08:59 Dose: 20 mg Heparin Sodium (Porcine) (Heparin) 5,000 units SC Q8 [facility] PRN Reason: Protocol Last Admin: 08/15/17 13:21 Dose: Not Given Sodium Chloride (Sodium Chloride 0.9%) 1,000 mls @ 100 mls/hr IV .Q10H [facility] Last Admin: 08/15/17 09:27 Dose: 100 mls/hr Aztreonam (Azactam 1 Gm) 100 mls @ 100 mls/hr IVPB Q8 [facility] PRN Reason: Protocol Stop: 08/21/17 23:16 Last Admin: 08/15/17 06:14 Dose: 100 mls/hr Lisinopril (Zestril) 40 mg PO DAILY [facility] Last Admin: 08/15/17 08:59 Dose: 40 mg Meclizine HCl (Antivert) 25 mg PO BID PRN PRN Reason: Dizziness - Labs Labs: 08/15/17 06:30 08/15/17 06:50
--- NOTE | 2017-08-15 16:39 | CP.PCM.DIS ---
Provider - Provider Date of Admission: 08/14/17 14:08 Attending physician: Emanuel Gil MD Primary care physician: Keri Dawson MD Consults: Neurology: Dr. Mannie Diaz Neurosurgery: Dr. Driscoll Time Spent in preparation of Discharge (in minutes): 25 Diagnosis - Discharge Diagnosis (1) Dizziness Status: Acute (2) Meningioma Status: Acute (3) Urinary tract infection Status: Acute Hospital Course - Lab Results Lab Results: Most Recent Lab Values WBC 6.9 10^3/ul (4.5-11.0) D 08/15/17 06:30 RBC 5.01 10^6/uL (3.5-6.1) 08/15/17 06:30 Hgb 14.5 g/dL (12.0-16.0) 08/15/17 06:30 Hct 44.7 % (36.0-48.0) 08/15/17 06:30 MCV 89.2 fl (80.0-105.0) 08/15/17 06:30 MCH 28.9 pg (25.0-35.0) 08/15/17 06:30 MCHC 32.4 g/dl (31.0-37.0) 08/15/17 06:30 RDW 14.7 % (11.5-14.5) H 08/15/17 06:30 Plt Count 286 10^3/uL (120.0-450.0) 08/15/17 06:30 MPV 10.9 fl (7.0-11.0) 08/15/17 06:30 Gran % 45.7 % (50.0-68.0) L 08/15/17 06:30 Lymph % (Auto) 42.4 % (22.0-35.0) H 08/15/17 06:30 [place] % (Auto) 9.7 % (1.0-6.0) H 08/15/17 06:30 Eos % (Auto) 1.6 % (1.5-5.0) 08/15/17 06:30 Baso % (Auto) 0.6 % (0.0-3.0) 08/15/17 06:30 Gran # 3.14 (1.4-6.5) 08/15/17 06:30 Lymph # 2.9 (1.2-3.4) 08/15/17 06:30 [place] # 0.7 (0.1-0.6) H 08/15/17 06:30 Eos # 0.1 (0.0-0.7) 08/15/17 06:30 Baso # 0.04 K/mm3 (0.0-2.0) 08/15/17 06:30 Sodium 140 mmol/L (132-148) 08/15/17 06:50 Potassium 4.5 mmol/L (3.6-5.0) 08/15/17 06:50 Chloride 107 mmol/L (98-107) 08/15/17 06:50 Carbon Dioxide 21 mmol/L (21-33) 08/15/17 06:50 Anion Gap 17 (10-20) 08/15/17 06:50 BUN 13 mg/dL (7-21) 08/15/17 06:50 Creatinine 0.6 mg/dl (0.7-1.2) L 08/15/17 06:50 Est GFR ( Amer) > 60 08/15/17 06:50 Est GFR (Non-Af Amer) > 60 08/15/17 06:50 POC Glucose (mg/dL) 102 mg/dL (65-110) 08/15/17 11:15 Random Glucose 105 mg/dL (70-110) 08/15/17 06:50 Calcium 10.0 mg/dL (8.4-10.5) 08/15/17 06:50 Total Bilirubin 0.7 mg/dL (0.2-1.3) 08/15/17 06:50 AST 23 U/L (14-36) 08/15/17 06:50 ALT 30 U/L (7-56) 08/15/17 06:50 Alkaline Phosphatase 69 U/L (38-126) 08/15/17 06:50 Troponin I < 0.01 ng/mL 08/14/17 10:50 Total Protein 7.1 g/dL (5.8-8.3) 08/15/17 06:50 Albumin 4.1 g/dL (3.0-4.8) 08/15/17 06:50 Globulin 2.9 gm/dL 08/15/17 06:50 Albumin/Globulin Ratio 1.4 (1.1-1.8) 08/15/17 06:50 Urine Color Yellow (YELLOW) 08/14/17 12:45 Urine Appearance Sl cloudy (CLEAR) 08/14/17 12:45 Urine pH 6.5 (4.7-8.0) 08/14/17 12:45 Ur Specific [place] 1.020 (1.005-1.035) 08/14/17 12:45 Urine Protein Trace mg/dL (<30 mg/dL) H 08/14/17 12:45 Urine Glucose (UA) Negative mg/dL (NEGATIVE) 08/14/17 12:45 Urine Ketones Negative mg/dL (NEGATIVE) 08/14/17 12:45 Urine Blood Trace-intact (NEGATIVE) H 08/14/17 12:45 Urine Nitrate Negative (NEGATIVE) 08/14/17 12:45 Urine Bilirubin Negative (NEGATIVE) 08/14/17 12:45 Urine Urobilinogen 0.2 E.U./dL (<1 E.U./dL) 08/14/17 12:45 Ur Leukocyte Esterase Moderate Lg/uL (NEGATIVE) H 08/14/17 12:45 Urine RBC Negative /hpf (0-2) 08/14/17 12:45 Urine WBC 25 - 30 /hpf (0-6) 08/14/17 12:45 Ur Epithelial Cells 3 - 4 /hpf (0-5) 08/14/17 12:45 - Hospital Course Hospital Course: Patient is a 77 year old female with past medical history of DM2, arthritis, HLD , and HTN who presented to the hospital complaining of a 2 day history of dizziness. Patient reported one previous history of such episode one year ago. Patient was evaluated in the emergency department with Head CT and Head MRI showing menigioma in the right frontal region without mass effect. Patient also evaluated to have urinalysis showing positive leukocyte esterase and placed on antibiotics for UTI. ID was consulted for ciprofloxacin and switched patient to Aztreonam in patient while awaiting urine culture. Neurology was consulted for dizziness and evaluated the patient with recommendations of neurosurgery consult , meclizine PRN, salt restriction and diet, and outpatient vestibular therapy. Neurosurgery was consulted and recommended against surgical intervention during this admission with recommendations for outpatient follow up. When potential for surgical intervention was discussed patient voiced strong objection to surgical intervention. Patient was educated and informed regarding discharge instructions. Patient informed to follow up outpatient with PMD, neurology, and neurosurgery for continued observation and management of mengioma. Patient was in understanding with plan. Patient evaluated to be hemodynamically stable, normothermic, euvolemic and discharged with plans for outpatient follow up. - Date & Time of H&P Date of H&P: 08/14/17 Time of H&P: 16:57 Discharge Exam - Head Exam Head Exam: ATRAUMATIC, NORMAL INSPECTION, NORMOCEPHALIC - Eye Exam Eye Exam: EOMI, PERRL. absent: Nystagmus Pupil Exam: absent: Miosis, Mydriatic - ENT Exam ENT Exam: Mucous Membranes Moist - Neck Exam Neck exam: Full Rom - Respiratory Exam Respiratory Exam: Clear to PA & Lateral, NORMAL BREATHING PATTERN. absent: Rales, Rhonchi, Wheezes - Cardiovascular Exam Cardiovascular Exam: REGULAR RHYTHM, +S1, +S2 - GI/Abdominal Exam GI & Abdominal Exam: Normal Bowel Sounds, Soft. absent: Firm, Guarding, Tenderness - Extremities Exam Extremities exam: normal capillary refill, normal inspection - Back Exam Back exam: NORMAL INSPECTION. absent: paraspinal tenderness, rash noted - Neurological Exam Neurological exam: Alert, CN II-XII Intact, Normal Gait, Oriented x3, Reflexes Normal - Psychiatric Exam Psychiatric exam: Normal Affect, Normal Mood - Skin Skin Exam: Dry, Intact, Warm Discharge Plan - Discharge Medications Prescriptions: Meclizine [Meclizine*] 25 mg PO BID PRN 14 Days #28 tab PRN Reason: Dizziness - Follow Up Plan Condition: STABLE Disposition: HOME/ ROUTINE Additional Instructions: Follow up with your primary care doctor within 2-3 days after discharge Follow up with neurosurgery for Mengioma Follow up with neurology with in 2 weeks after discharge Return to the hospital if your symptoms worsen or return Take medications as prescribed - Sent to pharmacy - [facility] Neurology: Mannie Diaz Number: [phone] Referrals: Keri Dawson MD [Primary Care Provider] - Follow up with primary Mannie Diaz MD [Staff Provider] -
== END 2017-08-15 17:11 | disposition home or self-care (01) | DRG 55 ==
LOC: ED 09:51 → ERH 14:08 → 5RNO 16:03
PROVIDERS: ADMIT Internal Medicine; ATTEND Internal Medicine
DX: D32.0 Benign neoplasm of cerebral meninges (principal); E11.9 Type 2 diabetes mellitus without complications; N39.0 Urinary tract infection, site not specified; I10 Essential (primary) hypertension; M19.90 Unspecified osteoarthritis, unspecified site; R42 Dizziness and giddiness; K21.9 Gastro-esophageal reflux disease without esophagitis; E78.00 Pure hypercholesterolemia, unspecified; K59.09 Other constipation; I25.10 Atherosclerotic heart disease of native coronary artery without angina pectoris; K29.70 Gastritis, unspecified, without bleeding; Z87.440 Personal history of urinary (tract) infections; Z85.42 Personal history of malignant neoplasm of other parts of uterus; Z90.11 Acquired absence of right breast and nipple; Z90.710 Acquired absence of both cervix and uterus

== ENCOUNTER 2018-05-15 11:33 | Emergency (ER) | payer MEDICARE ==
[2018-05-15 11:36] VITALS: BMI 34.0
[2018-05-15 11:40] VITALS: TEMP 97.9
[2018-05-15 12:06] LABS: BASO # 0.03 K/mm3 (0.0-2.0); BASO % 0.3 % (0.0-3.0); EOS # 0.1 (0.0-0.7); EOS % 0.9 % (1.5-5.0); GRAN # 4.36 (1.4-6.5); GRAN % 50.8 % (50.0-68.0); HEMOGLOBIN 14.7 g/dL (12.0-16.0); LYMPH # 3.2 (1.2-3.4); LYMPH % 37.2 % (22.0-35.0); MEAN CELL VOLUME 86.4 fl (80.0-105.0); MEAN CORPUSCULAR HEMOGLOBIN 29.3 pg (25.0-35.0); MEAN CORPUSCULAR HGB CONC 33.9 g/dl (31.0-37.0); MEAN PLATELET VOLUME 10.4 fl (7.0-11.0); MONO # 0.9 (0.1-0.6); MONO % 10.8 % (1.0-6.0); RBC 5.01 10^6/uL (3.5-6.1); RED CELL DISTRIBUTION WIDTH 14.2 % (11.5-14.5); WHITE BLOOD COUNT 8.6 10^3/ul (4.5-11.0)
--- NOTE | 2018-05-15 12:12 | RAD ---
HISTORY: chest pain COMPARISON: Chest x-ray performed 06/23/15 TECHNIQUE: Chest, one view. FINDINGS: Examination limited by habitus. LUNGS: Mild basilar atelectasis. Mild pulmonary venous congestion. No focal consolidation. Please note that chest x-ray has limited sensitivity for the detection of pulmonary masses. PLEURA: No significant pleural effusion identified. No definite pneumothorax . CARDIOVASCULAR: Cardiomegaly. Prominent mediastinum possibly related to ectatic aorta. Right hilar prominence. OSSEOUS STRUCTURES: Degenerative changes. VISUALIZED UPPER ABDOMEN: Unremarkable. OTHER FINDINGS: None. IMPRESSION: Mild basilar atelectasis. Mild pulmonary venous congestion. Cardiomegaly. Prominent mediastinum possibly related to ectatic aorta. Right hilar prominence.
[2018-05-15 12:15] LABS: INR 1.04; PARTIAL THROMBOPLASTIN TIME 27.3 Seconds (25.1-36.5)
[2018-05-15 12:26] LABS: ALB/GLOB RATIO 1.3 (1.1-1.8); ALBUMIN 4.1 g/dL (3.0-4.8); ALT/SGPT 22 U/L (7-56); AST/SGOT 18 U/L (14-36); BLOOD UREA NITROGEN 22 mg/dL (7-21); CALCIUM 9.8 mg/dL (8.4-10.5); GFR NON-AFRICAN AMERICAN > 60
[2018-05-15 12:37] LABS: TROPONIN I < 0.01 ng/mL
--- NOTE | 2018-05-15 12:38 | ED PDOC ---
Arrival/HPI - General Chief Complaint: Chest Pain Time Seen by Provider: 05/15/18 11:44 Historian: Patient - History of Present Illness Narrative History of Present Illness (Text): 05/15/18 12:38 78yo female with pmhx of hypertension, DM, HCL who present with complaint of right sided chest pain that radiates to her right arm x one week. Notes the pain became increasingly worse. Also reports pain and numbness in her right hands. States she have had this hand pain for over a year now. Her PMD gives her Naprosyn, but she feels is no longer working. She denies cough, SOB, diaphoresis, [place], PND, calf pain, leg pain, recent travel.surgery, trauma, cough , fever. Past Medical History - Provider Review Nursing Documentation Reviewed: Yes - Infectious Disease Hx of Infectious Diseases: None - Tetanus Immunization Tetanus Immunization: Unknown - Cardiac Hx Cardiac Disorders: Yes Hx Hypertension: Yes - Pulmonary Hx Respiratory Disorders: No - Neurological Hx Neurological Disorder: No - HEENT Hx HEENT Disorder: No - Renal Hx Renal Disorder: No - Endocrine/Metabolic Hx Endocrine Disorders: Yes Hx Diabetes Mellitus Type 2: Yes - Hematological/Oncological Hx Blood Disorders: No - Integumentary Hx Dermatological Disorder: No - Musculoskeletal/Rheumatological Hx Musculoskeletal Disorders: Yes Hx Arthritis: Yes - Gastrointestinal Hx Gastrointestinal Disorders: Yes Hx Gastroesophageal Reflux: Yes HX Swallowing Problems: Yes - Genitourinary/Gynecological Hx Genitourinary Disorders: Yes - Psychiatric Hx Psychophysiologic Disorder: No Hx Substance Use: No - Surgical History Other/Comment: R breast sx - Anesthesia Hx Anesthesia: Yes Hx Anesthesia Reactions: No Hx Malignant Hyperthermia: No - Suicidal Assessment Feels Threatened In Home Enviroment: No Family/Social History - Physician Review Nursing Documentation Reviewed: Yes Family/Social History: Unknown Family HX Smoking Status: Former Smoker Hx Alcohol Use: No Hx Substance Use: No Hx Substance Use Treatment: No Allergies/Home Meds Allergies/Adverse Reactions: Allergies Penicillins Adverse Reaction (Verified 05/15/18 11:45) SHORTNESS OF BREATH Home Medications: Home Meds Medication Instructions Recorded Confirmed Dexlansoprazole [Dexilant] 60 mg PO DAILY 01/28/14 05/15/18 Lisinopril/Hydrochlorothiazide 1 tab PO DAILY 01/28/14 05/15/18 [Lisinopril-Hctz 20-25 mg Tab] Tramadol HCl [Ultram] 50 mg PO Q8 PRN 06/29/15 05/15/18 Cholecalciferol [Vitamin D 1000 IU] 1 tab PO DAILY 03/26/17 05/15/18 Multivit-Minerals/Folic/Ginkgo 1 each PO QAM 03/26/17 05/15/18 [Cvs Daily Multiple Tablet] Simethicone [Mylicon Chew Tab] 80 mg PO ONCE PRN 03/26/17 05/15/18 Simvastatin 20 mg PO QAM 03/26/17 05/15/18 metFORMIN [glucOPHAGE] 500 mg PO QAM 03/26/17 05/15/18 Polyethylene Glycol 3350 [Miralax] 17 gm PO DAILY 08/14/17 05/15/18 Review of Systems - Physician Review All systems were reviewed & negative as marked: Yes - Review of Systems Constitutional: Normal Eyes: Normal ENT: Normal Respiratory: Normal Cardiovascular: Chest Pain Gastrointestinal: Normal Genitourinary Female: Normal Musculoskeletal: Normal Skin: Normal Neurological: Normal Endocrine: Normal Hemo/Lymphatic: Normal Psychiatric: Normal Physical Exam Vital Signs Reviewed: Yes Vital Signs Temp Pulse Resp BP Pulse Ox 05/15/18 13:48 97.9 F 81 18 133/64 98 05/15/18 13:39 81 18 133/64 98 05/15/18 11:39 97.9 F 88 19 94/61 L 96 Temperature: Afebrile Blood Pressure: Normal Pulse: Regular Respiratory Rate: Normal Appearance: Positive for: Well-Appearing, Non-Toxic, Comfortable Pain Distress: None Mental Status: Positive for: Alert and Oriented X 3 - Systems Exam Head: Present: Atraumatic, Normocephalic Pupils: Present: PERRL Extroacular Muscles: Present: EOMI Conjunctiva: Present: Normal Mouth: Present: Moist Mucous Membranes Neck: Present: Normal Range of Motion Respiratory/Chest: Present: Clear to Auscultation, Good Air Exchange, Tender to Palpation (Right sided wall). No: Respiratory Distress, Accessory Muscle Use, Wheezes, Decreased Breath Sounds, Rales, Retracting, Rhonchi Cardiovascular: Present: Regular Rate and Rhythm, Normal S1, S2. No: Murmurs Abdomen: No: Tenderness, Distention, Peritoneal Signs Back: Present: Normal Inspection Upper Extremity: Present: Normal Inspection. No: Cyanosis, Edema Lower Extremity: Present: Normal Inspection. No: Edema Neurological: Present: GCS=15, CN II-XII Intact, Speech Normal Skin: Present: Warm, Dry, Normal Color. No: Rashes Psychiatric: Present: Alert, Oriented x 3, Normal Insight, Normal Concentration Medical Decision Making ED Course and Treatment: 05/15/18 12:41 78yo morbidly obese female in ED for right sided chest pain that radiates to the right arm x one week. Labs Car EKG CXR Cardiac monitoring BNP ASA Will reassess EKG NSR @ 88bpm; LAD. NSTEMI 05/15/18 13:59 Pt was hemodynamically stable in ED. CXR NAD Lab was reviewed and first CE was wnl Secondary to pt's age and cardiac risk factor, she needed admission for serial CE and stress test. Admission was offered to the pt, but she declined admission. The son by the bedside also translated to the patient in [place], but she still refused to stay in the hospital. She states that she have been admitted in hospital for same complaint in the past and all test was negative. States she have been having this pain and feel is musculoskeletal. States Naprosyn was helping the pain, but it recently stopped. Also notes that she is on Tramadol for the pain. She requested to sign out AMA. She understood the risk of permanent disability, worsening symptom or sudden that can result from her decision and still want to sign out AMA. she is AAO x3 and have the mentation to sign out AMA. - Lab Interpretations Lab Results: 05/15/18 11:50 05/15/18 11:50 Lab Results 05/15/18 12:50: Urine Color Yellow, Urine Appearance Clear, Urine pH 7.0, Ur Specific [place] 1.010, Urine Protein Negative, Urine Glucose (UA) Negative, Urine Ketones Negative, Urine Blood Negative, Urine Nitrate Negative, Urine Bilirubin Negative, Urine Urobilinogen 0.2, Ur Leukocyte Esterase Negative 05/15/18 11:50: Sodium 141, Potassium 3.9, Chloride 102, Carbon Dioxide 29, Anion Gap 15, BUN 22 H, Creatinine 0.8, Est GFR ( Amer) > 60, Est GFR ( Non-Af Amer) > 60, Random Glucose 91, Calcium 9.8, Magnesium 2.3 H, Total Bilirubin 0.4, AST 18, ALT 22, Alkaline Phosphatase 76, Lactate Dehydrogenase 450, Total Creatine Kinase 56, Troponin I < 0.01, NT-Pro-B Natriuret Pep 29.0, Total Protein 7.2, Albumin 4.1, Globulin 3.1, Albumin/Globulin Ratio 1.3 05/15/18 11:50: PT 12.0, INR 1.04, APTT 27.3, D-Dimer, Quantitative < 200 05/15/18 11:50: WBC 8.6 D, RBC 5.01, Hgb 14.7, Hct 43.3, MCV 86.4, MCH 29.3, MCHC 33.9, RDW 14.2, Plt Count 302, MPV 10.4, Gran % 50.8, Lymph % (Auto) 37.2 H , [place] % (Auto) 10.8 H, Eos % (Auto) 0.9 L, Baso % (Auto) 0.3, Gran # 4.36, Lymph # (Auto) 3.2, [place] # (Auto) 0.9 H, Eos # (Auto) 0.1, Baso # (Auto) 0.03 - RAD Interpretation Radiology Orders: 05/15/18 11:45 CHEST PORTABLE [RAD] Stat - Medication Orders Current Medication Orders: Discontinued Medications Aspirin (Aspirin) 325 mg PO STAT STA Stop: 05/15/18 11:46 Last Admin: 05/15/18 12:00 Dose: 325 mg Cyclobenzaprine HCl (Flexeril) 5 mg PO STAT STA Stop: 05/15/18 13:14 Disposition/Present on Arrival - Present on Arrival Any Indicators Present on Arrival: No History of DVT/PE: No History of Uncontrolled Diabetes: No Urinary Catheter: No History of Decub. Ulcer: No History Surgical Site Infection Following: None - Disposition Have Diagnosis and Disposition been Completed?: Yes Diagnosis: Chest pain, Hand pain Disposition: AGAINST MEDICAL ADVICE Disposition Time: 13:15 Condition: STABLE Discharge Instructions (ExitCare): Chest Pain (DC), Chest Pain (ED) Prescriptions: Baclofen [Lioresal] 20 mg PO DAILY #12 tab Ibuprofen [Motrin Tab] 800 mg PO Q6 #20 tab Forms: [employer] 49 (French)
[2018-05-15 12:42] LABS: D DIMER < 200 ng/mlDDU (0-243)
[2018-05-15 13:14] LABS: URINE APPEARANCE CLEAR (CLEAR); URINE BILIRUBIN NEGATIVE (NEGATIVE); URINE BLOOD NEGATIVE (NEGATIVE); URINE COLOR YELLOW (YELLOW); URINE GLUCOSE (UA) NEGATIVE (NEGATIVE); URINE LEUKOCYTE ESTERASE NEGATIVE Leu/uL (NEGATIVE); URINE PROTEIN NEGATIVE mg/dL (<30 mg/dL); URINE UROBILINOGEN 0.2 E.U./dL (<1 E.U./dL)
[2018-05-15 13:40] VITALS: BP 133/64; PULSE 81; RESP 18; O2SAT 98
--- NOTE | 2018-05-16 09:42 | CARD ---
APPROVED REPORT Date of service: 05/15/2018 EKG Measurement Heart [id number] <Conclusion> Normal sinus rhythm with 1st degree AVB Left axis deviation/LAHB PRWP RVCD Possible IMI, old No change
== END 2018-05-15 13:48 | disposition left against medical advice (07) ==
LOC: ED 11:33
DX: R07.9 Chest pain, unspecified (principal); M79.641 Pain in right hand; E11.9 Type 2 diabetes mellitus without complications; I10 Essential (primary) hypertension; Z87.891 Personal history of nicotine dependence